=== PATIENT | female | born 1990 | race Caucasian/White ===

== ENCOUNTER 2020-02-08 14:58 | Emergency (ER) | payer SELFPAY ==
[2020-02-08 14:59] VITALS: BP 144/90; PULSE 107; RESP 17; TEMP 36.8; O2SAT 97; BMI 30.4
[2020-02-08 15:26] LABS: Absolute Lymphocyte Count 1.35 X10^3/uL (0.83-4.51); Absolute Neutrophil Count 3.8 X10^3/uL (2.0-7.7); Basophil# 0.02 X10^3/uL; Basophil% 0.4 % (0-1); Eosinophil# 0.01 X10^3/uL; Eosinophils% 0.2 % (0-5); Hematocrit 45.1 % (37-47); Hemoglobin 15.1 g/dL (12.0-15.0); Lymphocyte # 1.35 X10^3/ul (4.0); Lymphocyte % 24.7 % (19-41); Mean Corp Hgb Conc 33.5 g/dL (32-36); Mean Corpuscular Volume 89.5 fL (81-99); Mean Platelet Vol. 11.9 fl (6.2-12.0); Monocyte# 0.32 X10^3/uL; Monocyte% 5.9 % (0-10); NRBC Flagged by Analyzer 0 % (0-5); Neutrophil # 3.76 X10^3/uL (2.7-7.7); Neutrophil % 68.6 % (47-70); Platelet Count 169 K/mm3 (150-450); RBC Distribution Width CV 13.2 % (11.6-14.6); RBC Distribution Width SD 43.5 fl (35.1-43.9); Red Blood Count 5.04 M/mm3 (4.2-5.4); White Blood Count 5.5 K/mm3 (4.4-11.0)
[2020-02-08 15:34] LABS: Anion Gap 6 (5-15); BUN 10 mg/dL (7-18); Calcium,Total 9.2 mg/dL (8.5-10.1); Chloride 110 mmol/L (98-107); Creatinine, Serum 0.77 mg/dL (0.55-1.02); EST Glomerular Filtration Rate 95 mL/min (>60); Est Glom Filt Rate - Afr Amer 115 mL/min (>60); Estimated Creatinine Clearance 110.71 ml/min; Glucose 99 mg/dL (74-106); Potassium 3.9 mmol/L (3.5-5.1); Sodium Level 140 mmol/L (136-145)
[2020-02-08 15:53] LABS: Alcohol, Blood (Medical)-Serum < 3.0 mg/dL
[2020-02-08 15:56] LABS: Internal QC Validated? YES +Cl - CLEAR BKGD; Pregnancy, Serum, hCG Quali. NEGATIVE Negative
--- NOTE | 2020-02-08 16:46 | EKG12_ITS ---
Test Reason : MENTAL HEALTH Blood Pressure : / mmHG Vent. Rate : 094 BPM Atrial Rate : 094 BPM P-R Int : 132 ms QRS Dur : 092 ms QT Int : 362 ms P-R-T Axes : 082 078 063 degrees QTc Int : 452 ms Normal sinus rhythm with sinus arrhythmia Normal ECG Confirmed by EVAN DIEGO ([id number]), senior technical editor GUILLERMINA HERRERA ([id number]) on 02/13/2020 2:04:16 PM Referred By: DONIS Confirmed By:EVAN DIEGO
--- NOTE | 2020-02-08 16:53 | ED.VIS.GEN ---
History of Present Illness Chief Complaint: Mental Health Informant: Patient, Family Onset: Month(s) Current Severity: Mild Maximum Severity: Mild Narrative: The patient is here with the mother she has had longstanding depression for months she is seen at crisis center, she lives with the mother, she has had sense that she does not wish to go to bed does not want to leave the house does not wish to eat or drink she is been seeing local counselors does not wish to see them as I do not think they are helping. Crisis center personnel went to the house and then assessment and suggest that she come to the emergency department for unspecified reasons, she denies being suicidal homicidal denies head neck chest or abdominal pain denies any past medical history has no specific complaints other than just feeling depressed Past Medical History - Allergies and Home Meds Allergies/Adverse Reactions: Allergies azithromycin [From Zithromax] Allergy (Verified 02/08/20 14:58) Unknown Primary Care Physician: NOT,DEFINED [NON-STAFF] - Past Medical History: - Smoking Status: Never smoker Review of Systems ROS: - Depression General: Denies: Chills, Fever, Sweats Eyes: Denies: Visual changes - bilaterally, Diplopia ENT: Denies: Rhinorrhea, Sore throat Cardiovascular: Denies: Chest pain, Palpitations Respiratory: Denies: Dyspnea, Cough, Dyspnea on exertion Gastrointestinal: Denies: Abdominal pain, Nausea, Vomiting, Diarrhea, Melena, Hematochezia Genitourinary: Denies: Dysuria, Hematuria, Frequency Musculoskeletal: Denies: Back pain, Extremity Pain Skin: Denies: Rash, Wounds Neurological: Denies: Headache, Weakness, Numbness Psych: Reports: Depression Physical Exam Vital Signs/Narrative: Vital Signs Temp Pulse Resp BP Pulse Ox 02/08/20 14:59 98.2 F 107 H 17 144/90 H 97 General: Well nourished, Well developed, No Acute Distress Head: Normocephalic, Atraumatic Eyes: Perrl, EOMI ENT: Moist mucous membranes, No rhinorrhea Neck: Supple, Nontender Cardiovascular: Regular rate, Regular rhythm, No murmurs Respiratory: No distress, CTA bilaterally, Chest nontender Abdomen: Soft, Nontender, Nondistended, Normal bowel sounds Back: Nontender, Normal Inspection Extremities: Nontender, No edema Skin: Normal color, No rash Neurological: Alert, Oriented x3, Cranial nerves II-XII grossly intact, Normal Strength, Normal Sensation Psychological: Depressed Diagnostic/Tx/Re-eval - Medical Decision Making The patient has been depressed for months she has been seeing outpatient management crisis center went to the house to do an assessment because she would not follow-up with her managers and healthcare mental health providers at this time screening labs were obtained and will ask crisis center to complete their psychiatric mental health evaluation and determine her mental health disposition plan clinically she is resting company in the bed no distress she and mother deny suicidal homicidal ideation Patient's ED screening evaluation was unremarkable, her EKG showed a sinus rhythm rate of about 90 intervals within normal range no acute injury she is remained asymptomatic here at this time social service has contacted the crisis center who did their evaluation and they are going to try to arrange for inpatient management as they feel that might be the best approach for the patient's care patient is understanding of the above and were pending mental health to finish their evaluation Disposition pending mental health assessment Final impression depression ED Disposition - Plan for ED Patient: Referrals: NOT,DEFINED [NON-STAFF] -
--- NOTE | 2020-02-08 17:00 | RAD_ITS ---
STUDY: X-RAY CHEST REASON FOR EXAM: Female, 29 years old. MENTAL HEALTH EVAL., INCREASED ANXIETY, DECREASED APPETITE TECHNIQUE: Single frontal view of the chest. COMPARISON: None. FINDINGS: The lungs are clear and expanded. There is no demonstrated pleural abnormality. Normal size heart. Normal mediastinum and jan. Normal visualized pulmonary arteries. Normal visualized aortic arch and descending thoracic aorta. Normal visualized thoracic spine. Normal visualized ribs, clavicles, and shoulders. There is no demonstrated abnormality of the visualized soft tissue structures of the upper abdomen. RAD/Chest 1 View (Portable) IMPRESSION: Normal x-ray examination of the chest. Electronically Signed: Ephraim Redman MD at 17:17 EDT Tel , Service support ,
--- NOTE | 2020-02-08 17:05 | NURSING ---
NO OLD EKGS
[2020-02-08 17:45] LABS: Amphetamine Urine VISTA NEGATIVE (<1000 ng/mL); Barbiturate Urine VISTA NEGATIVE (< 200 ng/mL); Benzodiazepine Urine VISTA NEGATIVE (< 200 ng/mL); Cocaine Urine VISTA NEGATIVE (< 300 ng/mL); Ecstacy Urine VISTA NEGATIVE (< 500 ng/mL); Methadone Urine VISTA NEGATIVE (< 300 ng/mL); PCP Urine VISTA NEGATIVE (< 25 ng/mL); THC Urine VISTA NEGATIVE (< 50 ng/mL); Vista UDS pH Range 5
--- NOTE | 2020-02-08 17:53 | CM.ED ---
Social Work Telephone call from cabinet worker, Sandhya. Sandhya reporting that patient was assessed in community and is coming to the ED for medical clearance for psychiatric placement. Per Dr. Person, patient is medically cleared. Clinical information faxed to Crisis for psychiatric placement. Tonia Main MSW, HAKAN
[2020-02-08 18:43] VITALS: RESP 16
--- NOTE | 2020-02-08 21:23 | CM.ED ---
Social Work Patient mother, Reta requesting to speak with this social director. Reta aware that due to patient not having insurance plan would be for patient to transition to [facility], pending acceptance. Reta inquiring about private pay option for an inpatient psychiatric facility. This social director stating to Reta to not be sure about this option but to ask crisis as crisis is facilitate referral/placement. Telephone call to [facility], Jana. Jana states to have not been asked about private pay and will look into this option. [facility] has Reta's phone number and will call Reta directly after looking into possible options. Jana also states that patient referral was faxed to [facility] and is pending review. This social director updating Reta that crisis will be calling Reta with answer to question about private pay. Reta speaking with this social director outside patient room as Reta does not want patient to be aware of question about private pay until an answer is found. This social director then going into patient room to touch base with how patient is doing. Patient presenting as anxious and tearful. This social director inquiring if patient takes any medications for anxiety at home. Patient denies taking any medications. Patient is also not sure about taking medication for anxiety. Patient wanting to think about taking medication further and states I have a hard time making decisions right now. Support provided. Updated patient nurse on above information. Patient nurse to check on patient again soon. If patient continues to be anxious nursing staff will explore option for medication further with ED doctor and patient. Tonia WEST, HAKAN
[2020-02-08 22:23] LABS: AST(SGOT) 15 U/L (15-37); Alanine Aminotransfer ALT/SGPT 29 U/L (13-56); Albumin, Serum 4.1 g/dL (3.2-5.0); Alkaline Phosphatase 71 U/L (45-117); Globulin 3.4 g/dL (2.2-4.2); Protein, Total 7.5 g/dL (6.4-8.2)
[2020-02-08 23:17] VITALS: BP 142/87; PULSE 89; RESP 16; O2SAT 97
[2020-02-09] VITALS (9 sets, daily range): BP systolic 135–150; BP diastolic 77–97; PULSE 76–113; RESP 14–18; TEMP 36.9; O2SAT 96–99
[2020-02-09] MEDS: LORazepam 1 MG Tablet PO ×2 (11:03→22:57)
--- NOTE | 2020-02-09 12:41 | NURSING ---
CALLED CRISIS, TALKED TO [facility]. PATIENT IS NUMBER [id number], SO PROBABLY NO BED TODAY. MAYBE TOMORROW
[2020-02-10] VITALS (9 sets, daily range): BP systolic 125–131; BP diastolic 79–94; PULSE 14–101; RESP 14–18; O2SAT 97–99
--- NOTE | 2020-02-10 12:10 | NURSING ---
CALLED [facility] FOR UPDATE ON PATIENT. THEY WILL CALL ME BACK
--- NOTE | 2020-02-10 12:14 | NURSING ---
VIRGILIO, ALEKSANDRA, CALLED. THERE IS A VERY GOOD CHANCE PATIENT WILL BE ACCEPTED TODAY. THEY WILL KEEP US UP TO DATE
--- NOTE | 2020-02-10 15:30 | CM.ED ---
SOCIAL WORK Updated by nursing, patient has been accepted to [facility]. Mother and patient with questions. Met with patient and mother in room. All questions answered. [employer] to set up transport. Desiree Reynaga, INSTRUCTIONAL MATERIAL DIRECTOR, MAGAZINE EDITOR
== END 2020-02-10 16:21 ==
PROVIDERS: Emergency Medicine; Emergency Provider Emergency Medicine; PCP Family Medicine
DX: F32.9 Major depressive disorder, single episode, unspecified (principal)
CPT/HCPCS: 71045; 80048; 80076; 80307; 80320; 84484; 84703; 85025; 93005; 99283; G0480